=== PATIENT | female | born 1990 | race Caucasian/White ===

== ENCOUNTER 2018-07-10 08:27 | Outpatient (CLI) | payer OTHER ==
[~2018-07-10] VITALS: Ht 167.6 cm; Wt 78.0 kg
[2018-07-12] MEDS ORDERED: INDO25CA15 PO ×2 (07:03→09:23)
== END 2018-07-10 12:20 | disposition home or self-care (01) ==
LOC: PREOP 08:27
PROVIDERS: ATTEND Obstetrics & Gynecology
DX: Z01.818 Encounter for other preprocedural examination (principal)

== ENCOUNTER 2018-07-11 10:55 | Day surgery (SDC) | payer OTHER ==
[2018-07-11] VITALS (11 sets, daily range): BP systolic 88–101; BP diastolic 40–62
[~2018-07-11] VITALS: Ht 167.6 cm; Wt 78.0 kg
[2018-07-11] MEDS: LACTATED RINGERS 1,000 ML IV PRN ×2 (11:20→12:15)
[2018-07-11 11:46] LABS: BASOPHILS % (AUTO) 0 % (0-10); EOSINOPHILS % (AUTO) 0 % (0-10); HEMATOCRIT 36 % (35-52); HEMOGLOBIN 12.5 G/DL (11.5-16.0); LYMPHOCYTES # (AUTO) 1.6 X 10^3 (1.0-4.0); LYMPHOCYTES % (AUTO) 19 % (12-44); MEAN CORPUSCULAR HEMOGLOBIN 31 PG (25-34); MEAN CORPUSCULAR HGB CONC 35 G/DL (32-36); MEAN CORPUSCULAR VOLUME 89 FL (80-99); MEAN PLATELET VOLUME 11.2 FL (7.4-10.4); MONOCYTES # (AUTO) 0.4 X 10^3 (0.0-1.0); MONOCYTES % (AUTO) 5 % (0-12); NEUTROPHILS # (AUTO) 6.2 X 10^3 (1.8-7.8); NEUTROPHILS % (AUTO) 75 % (42-75); PLATELET COUNT 192 10^3/uL (130-400); RED CELL DISTRIBUTION WIDTH 13.1 % (10.0-14.5); WHITE BLOOD COUNT 8.3 10^3/uL (4.3-11.0)
[2018-07-11] MEDS ORDERED: fentaNYL INJECTION 100 MCG/2 ML AMP ONE (12:30)
--- NOTE | 2018-07-11 12:43 | History & Physical-OB ---
OB - Chief Complaint & HPI Date/Time Date of Admission: Date of Admission: 07/11/2018 Date seen by a Provider: July 11, 2018 Time Seen by a Provider: 12:15 Chief Complaint/History OB-Reason for Admission/Chief: Obstetrical Complication Hx : 1 Hx Para: 0 Gestational Age in Weeks: 16 Other reason for admission: Cerclage placement Admission Nurse Assessment Rev: Yes Allergies and Home Medications Allergies Coded Allergies: No Known Drug Allergies (Unverified , 07/10/18) Home Medications No Active Prescriptions or Reported Meds Patient Home Medication List Home Medication List Reviewed: Yes OB - History Hx of Present Care: Yes Ultrasounds: Abnormal US findings (2.16cm cervical length at 16 weeks) Obstetrical Complications: None Medical Complications: None Patient Past Medical History n/a Social History/Family History Recent Infectious Disease Expo: No Alcohol Use: Denies Use Recreational Drug Use: No OB - Admission Exam Physical Exam Vitals: Vital Signs 07/11/18 11:39 Temp 98.7 Pulse 67 Resp 18 B/P (MAP) 96/60 (72) Pulse Ox 100 O2 Delivery Room Air HEENT: NCAT Heart: Rhythm Normal Lungs: Clear Abdomen: Gravid Extremities: Normal Reflexes: Normal Heart Rate: 150's Labs Laboratory Tests Test 07/11/18 11:25 Range/Units White Blood Count 8.3 4.3-11.0 10^3/uL Red Blood Count 4.03 L 4.35-5.85 10^6/uL Hemoglobin 12.5 11.5-16.0 G/DL Hematocrit 36 35-52 % Mean Corpuscular Volume 89 80-99 FL Mean Corpuscular Hemoglobin 31 25-34 PG Mean Corpuscular Hemoglobin Concent 35 32-36 G/DL Red Cell Distribution Width 13.1 10.0-14.5 % Platelet Count 192 130-400 10^3/uL Mean Platelet Volume 11.2 H 7.4-10.4 FL Neutrophils (%) (Auto) 75 42-75 % Lymphocytes (%) (Auto) 19 12-44 % Monocytes (%) (Auto) 5 0-12 % Eosinophils (%) (Auto) 0 0-10 % Basophils (%) (Auto) 0 0-10 % Neutrophils # (Auto) 6.2 1.8-7.8 X 10^3 Lymphocytes # (Auto) 1.6 1.0-4.0 X 10^3 Monocytes # (Auto) 0.4 0.0-1.0 X 10^3 Eosinophils # (Auto) 0.0 0.0-0.3 10^3/uL Basophils # (Auto) 0.0 0.0-0.1 10^3/uL OB - Assessment/Plan/Diagnosis Assessment Assessment: other Admission Dx 27 yo @ 16 weeks Shortened cervix- Ayala Cerclage placement Admission Status: Observation Plan Plan: Other (Cerclage) Other Plan Will obs overnight with Indomethacin given, plan for DC in the AM ELIZABETH GIBBONS DO July 11, 2018 12:43
[2018-07-11] MEDS ORDERED: APAP 300 MG/CODEINE 30 MG (TYLENOL #3) TAB PO PRN (14:15)
[2018-07-11] MEDS ORDERED: D5 LR IV SOLUTION 1,000 ML IV SCH (14:15)
--- NOTE | 2018-07-11 14:20 | NUR ---
27 yr old female at 17 weeks from PACU with cerclage. No vaginal bleeding. Spinal anesthesia and move legs slightly. Denies pain or nausea. IV infusing. @ bedside.
--- NOTE | 2018-07-11 16:30 | NUR ---
Pt states has mild cramping. No urge to void. Instructed to use call light for first time up to void. FHT's 140 upon admission to unit. Tolerated regular diet well.
[2018-07-11] MEDS ORDERED: INDOMETHACIN 25 MG (INDOCIN) CAP PO NR (17:15)
--- NOTE | 2018-07-11 18:15 | NUR ---
Less cramping since Indocin.
[2018-07-11] MEDS ORDERED: INDOMETHACIN 25 MG (INDOCIN) CAP PO SCH (21:00)
[2018-07-12 01:57] VITALS: BP 95/58
[2018-07-12] MEDS: INDOMETHACIN 25 MG (INDOCIN) CAP PO SCH ×2 (01:57→05:47)
[2018-07-12] MEDS ORDERED: INDOMETHACIN 25 MG (INDOCIN) CAP PO ONE (05:34)
[2018-07-12 05:47] VITALS: BP 91/57
[2018-07-12] MEDS ORDERED: INDO25CA15 PO ×2 (07:03→09:23)
--- NOTE | 2018-07-12 08:25 | NUR ---
Dr. Coronado here to see patient. New orders received.
[2018-07-12 09:34] VITALS: BP 99/59
--- NOTE | 2018-07-12 09:34 | NUR ---
AM shift assessment completed and vital signs obtained, see interventions. Plan of care reviewed with patient. Patient verbalizes understanding and questions answered. heart tones obtained with doppler: 145 bpm.
--- NOTE | 2018-07-12 09:38 | Anesthesia-Regional Post-Op ---
Regional Patient Condition Mental Status: Alert, Oriented x3 Circulation: Same as Pre-Op Headache: Absent Sensation: Full Recovery Motor Block: Absent Post Op Complications Complications None Follow Up Care/Instructions Patient Instructions None needed. Anesthesia/Patient Condition Patient is doing well, no complaints, stable vital signs, no apparent adverse anesthesia problems. No complications reported per nursing. PAULINE OCONNELL CRNA July 12, 2018 09:38
--- NOTE | 2018-07-12 09:42 | NUR ---
Discharge instructions and medications reviewed with patient both written and verbally. Patient verbalizes understanding and questions answered. Written prescription given to patient.
--- NOTE | 2018-07-12 09:53 | NUR ---
Patient discharged at this time via wheelchair and accompanied down to awaiting private vehicle by this RN. No signs or symptoms of distress noted.
--- NOTE | 2018-07-12 18:50 | OPERATIVE REPORT ---
DATE OF SERVICE: PREOPERATIVE DIAGNOSES: 1. A 27-year-old female with shortening cervix. 2. A 16 weeks gestation. POSTOPERATIVE DIAGNOSES: 1. A 27-year-old female with shortening cervix. 2. A 16 weeks gestation. PROCEDURE: Jose cerclage. SURGEON: ELIZABETH GIBBONS DO ESTIMATED BLOOD LOSS: Minimal. URINE OUTPUT: Not recorded. FLUIDS: 800 mL lactated Ringer's solution. FINDINGS: Significantly shortened cervix on evaluation and heart tones in the 150s. OPERATIVE REPORT IN DETAIL: The patient was taken to the operating room where spinal anesthesia was found to be adequate, placed in the dorsal lithotomy position, prepped and draped in normal sterile fashion. Once this was done, a timeout was performed. A weighted speculum inserted to the patient's vagina. A right angle retractor used to visualize the cervix. Cervix was grasped at 12 o'clock and 6 o'clock using a long Allis clamp. Two Jose cerclage sutures are placed in usual fashion using #1 Ethibond doubly knotted at the ends. Once this was done, there was no active bleeding noted. The vagina was irrigated copiously to prevent cramping and postoperative bleeding after which all instruments were removed from the patient's vagina. The patient tolerated the procedure well and sent to recovery room in stable condition. Job ID: [id number] DocumentID: [id number] Dictated Date: 07/12/2018 09:18:13 Supervisor [employer] Date: 07/12/2018 18:50:17 Dictated By: ELIZABETH GIBBONS DO
== END 2018-07-12 09:53 | disposition home or self-care (01) ==
LOC: SDC 10:55 → LDRP 14:20 → SDC 07-12 09:53
PROVIDERS: ATTEND Obstetrics & Gynecology
DX: O26.872 Cervical shortening, second trimester (principal); Z3A.16 16 weeks gestation of pregnancy
CPT/HCPCS: 36415; 85025; 86850; 86900; 86901; 87081; 94664

== ENCOUNTER → 2018-08-02 | Outpatient (CLI) | payer OTHER ==
[~2018-08-02] MED LIST: INDO25CA15 PO
--- NOTE | 2018-08-02 12:00 | Diagnostic Imaging Report ---
INDICATION: survey. TECHNIQUE: Multiple real-time grayscale images were obtained over the gravid uterus. COMPARISON: None. FINDINGS: There are no prior studies available for comparison. There is a single live fetus in breech presentation. heart motion was noted and a rate of 163 BPM was recorded. There were no abnormalities identified but the four-chamber heart view was less than optimal. I would recommend that a short-term (4-6 week) followup exam be performed for further study. The growth parameters are fairly uniform. The placenta is posterior and fundal. The amniotic fluid volume is within normal limits. The cervix was measured and is estimated 3.1 cm in length. IMPRESSION: 1. There is single live fetus approximately 20 weeks 4 days gestation + / -1.5 weeks. The EDC is 12/16/2018. 2. There were no abnormalities identified but the four-chamber heart view is less than optimal. Recommendations as above. 3. The growth parameters are fairly uniform. Biometrical measurements are as follows: Biparietal 4.74 cm, age 20 weeks 3 days. Head circumference 18.32 cm, age 20 weeks 5 days. Abdominal circumference 15.58 cm, age 20 weeks 6 days. Femur length 3.27 cm, age 20 weeks 2 days. Sonographic estimate age: 20 weeks 4 days. Sonographic estimated date of delivery: 12/16/2018. Estimated Weight: 359 gm (+/- 52 gm). LMP percentile: 67%. heart rate: 163 beats per minute. number: 1 of 1. Dictated by: Dictated on workstation # [id number]
== END ==
LOC: RAD 10:11
PROVIDERS: ATTEND Obstetrics & Gynecology
DX: Z36.89 Encounter for other specified antenatal screening (principal); Z3A.20 20 weeks gestation of pregnancy
CPT/HCPCS: 76805

== ENCOUNTER 2018-11-20 15:00 | Inpatient (IN) | payer OTHER ==
[2018-11-20] VITALS (37 sets, daily range): BP systolic 105–143; BP diastolic 57–79
[~2018-11-20] VITALS: Ht 167.7 cm; Wt 88.5 kg
--- NOTE | 2018-11-20 14:55 | NUR ---
PHU HINOJOSA presented to unit via ambulation from 's office, accompanied by & pt's , for contractions. Pt. weighed, gowned, voided, and to bed. EFHM and TOCO applied, VS taken. Pt. oriented to bed controls, call light, TV, heat, and A/C controls.
--- NOTE | 2018-11-20 16:17 | NUR ---
here. SVE per admission orders received
[2018-11-20] MEDS ORDERED: AMPICILLIN FOR IV USE 2,000 MG in WATER (STERILE) FOR INJECTION 14.8 ML IV SCH (16:21)
[2018-11-20] MEDS ORDERED: D5 LR IV SOLUTION 1,000 ML IV ONE (16:24)
[2018-11-20] MEDS: D5 LR IV SOLUTION 1,000 ML IV SCH (16:42)
--- NOTE | 2018-11-20 16:42 | NUR ---
#20g IV to Rt.hand x2 attempts by this RN. site patent. secured with That{img}. D5LR @ 125cc/hr infusing via IV pump. admission labs collected prior to IVF's infusing.
--- NOTE | 2018-11-20 17:01 | NUR ---
LR bolus started prior to epidural placement.
[2018-11-20 17:03] LABS: BASOPHILS % (AUTO) 0 % (0-10); EOSINOPHILS % (AUTO) 0 % (0-10); HEMATOCRIT 38 % (35-52); HEMOGLOBIN 12.8 G/DL (11.5-16.0); LYMPHOCYTES # (AUTO) 1.4 X 10^3 (1.0-4.0); LYMPHOCYTES % (AUTO) 12 % (12-44); MEAN CORPUSCULAR HEMOGLOBIN 30 PG (25-34); MEAN CORPUSCULAR HGB CONC 34 G/DL (32-36); MEAN CORPUSCULAR VOLUME 88 FL (80-99); MEAN PLATELET VOLUME 12.5 FL (7.4-10.4); MONOCYTES # (AUTO) 0.7 X 10^3 (0.0-1.0); MONOCYTES % (AUTO) 6 % (0-12); NEUTROPHILS % (AUTO) 81 % (42-75); PLATELET COUNT 194 10^3/uL (130-400); RED CELL DISTRIBUTION WIDTH 13.7 % (10.0-14.5); WHITE BLOOD COUNT 11.2 10^3/uL (4.3-11.0)
--- NOTE | 2018-11-20 17:21 | NUR ---
Ivonne Hayes called to check on pt's status. update given. no new orders received.
[2018-11-20] MEDS ORDERED: FLU QUADRIvalent (5+ YOA) 2019-2020 (AFLURIA) 0.5 ML IM ONE (18:30)
[2018-11-20 19:18] LABS: BILIRUBIN,URINE NEGATIVE (NEGATIVE); CLARITY,URINE CLEAR; COLOR,URINE YELLOW; GLUCOSE, URINE (UA) NEGATIVE (NEGATIVE); KETONES,URINE 4+ (NEGATIVE); LEUKOCYTE ESTERASE ,URINE 2+ (NEGATIVE); NITRITE,URINE NEGATIVE (NEGATIVE); PH,URINE 6 (5-9); PROTEIN,URINE 1+ (NEGATIVE); UROBILINOGEN,URINE NORMAL (NORMAL)
--- NOTE | 2018-11-20 19:18 | NUR ---
report given to CINTIA Parikh.
[2018-11-20 19:29] LABS: BACTERIA,URINE FEW /HPF; RBC,URINE 50-100 /HPF
[2018-11-20] MEDS ORDERED: SUFENTA 0.6MCG/ML BUPIVA 0.125 100 ML ONE (19:39)
--- NOTE | 2018-11-20 20:22 | NUR ---
Renny Cox, SAGAR and KENTRELL here for epidural placement. Procedure explained, consent reviewed and signed by anesthesia. Questions answered to patient's satisfaction. Time out taken to verify correct patient/procedure. Patient up to side of bed, assisted into sitting position. Betadine prep done x3 and sterile drape applied. Local done, see anesthesia record. Test dose given, see anesthesia record for drug and dosage. Epidural catheter secured in place. Epidural placement complete. Assisted back into bed, monitors adjusted. Epidural dosed, see anesthesia record. Epidural of Sufenta/Bupvicaine @ 12cc/hr stated per pump. Patient tolerated procedure well.
[2018-11-20] MEDS ORDERED: LACTATED RINGERS 1,000 ML IV SCH (20:56)
[2018-11-20] MEDS: EPIDURAL (SUFENTA 0.6MCG/ML BUPIVA 0.125%) 100 ML BAG EPI SCH (20:57)
[2018-11-20] MEDS ORDERED: ONDANSETRON 4 MG/2 ML (SDV) Z0FRAN IV PRN (21:00)
[2018-11-20] MEDS ORDERED: METOCLOPRAMIDE INJ 10 MG/2 ML (REGLAN) IV PRN (21:00)
[2018-11-20] MEDS ORDERED: diphenhydrAMINE 50 MG/ML INJ (BENADRYL) IV PRN (21:00)
[2018-11-20] MEDS ORDERED: NALOXONE 0.4 MG/ML 1 ML (NARCAN) VIAL IV PRN ×2 (21:00)
[2018-11-20] MEDS: AMPICILLIN FOR IV USE 1,000 MG in WATER (STERILE) FOR INJECTION 7.4 ML IV SCH (21:38)
--- NOTE | 2018-11-20 21:41 | History & Physical-OB ---
OB - Chief Complaint & HPI Date/Time Date of Admission: Date of Admission: Nov 20, 2018 at 16:20 Date seen by a Provider: Nov 20, 2018 Time Seen by a Provider: 15:00 Chief Complaint/History OB-Reason for Admission/Chief: Labor Hx : 1 Hx Para: 0 Expected Date of Delivery: Dec 19, 2018 Gestational Age in Weeks: 35 Gestational Age in Days: 6 Other reason for admission: Patient admitted from the office after routine visit resulted in the patient requesting vaginal exam due to pelvic/vaginal pains. On exam cerclage was palpated underpressure with some dilatation despite it being in place. There was some tearing of the cervix noted on exam. SSE performed and both cerclage sutures were removed. Afterwhich SVE revealed 4 cm/90/-1 station with bulging membranes. Patient sent to L and D for evaluation and monitoring,. Admission Nurse Assessment Rev: Yes Allergies and Home Medications Allergies Coded Allergies: No Known Drug Allergies (Unverified , 07/10/18) Home Medications Indomethacin 25 Mg Capsule, 25 MG PO Q6hr Prescribed by: NAT RICHARDS on 07/12/18 0923 Patient Home Medication List Home Medication List Reviewed: Yes OB - History Hx of Present Care: Yes Ultrasounds: Normal mid trimester US Obstetrical Complications: Other (cervical insufficiency) Medical Complications: None Obstetrical History Hx : 1 Hx Para: 0 Patient Past Medical History LEEP Social History/Family History Recent Infectious Disease Expo: No Alcohol Use: Denies Use Recreational Drug Use: No OB - Admission Exam Physical Exam Vitals: Vital Signs 11/20/18 11/20/18 15:00 19:00 Temp 36.4 Pulse 71 Resp 18 B/P (MAP) 118/74 (89) O2 Delivery Room Air HEENT: NCAT Heart: Rhythm Normal Lungs: Clear Abdomen: Gravid Extremities: Normal Reflexes: Normal Cervical Dilatation: 4cm Effacement: 100% Station: -1 Membranes: Intact Heart Rate: 130's Accelerations: Accelerations Present Decelerations: No Decelerations Short Term Variability: Present Manager Transportation Planning Variability: Average (6-25) Contractions on Admission: < 5 Minutes Apart Labs Laboratory Tests Test 11/20/18 16:42 11/20/18 18:55 Range/Units White Blood Count 11.2 H 4.3-11.0 10^3/uL Red Blood Count 4.31 L 4.35-5.85 10^6/uL Hemoglobin 12.8 11.5-16.0 G/DL Hematocrit 38 35-52 % Mean Corpuscular Volume 88 80-99 FL Mean Corpuscular Hemoglobin 30 25-34 PG Mean Corpuscular Hemoglobin Concent 34 32-36 G/DL Red Cell Distribution Width 13.7 10.0-14.5 % Platelet Count 194 130-400 10^3/uL Mean Platelet Volume 12.5 H 7.4-10.4 FL Neutrophils (%) (Auto) 81 H 42-75 % Lymphocytes (%) (Auto) 12 12-44 % Monocytes (%) (Auto) 6 0-12 % Eosinophils (%) (Auto) 0 0-10 % Basophils (%) (Auto) 0 0-10 % Neutrophils # (Auto) 9.0 H 1.8-7.8 X 10^3 Lymphocytes # (Auto) 1.4 1.0-4.0 X 10^3 Monocytes # (Auto) 0.7 0.0-1.0 X 10^3 Eosinophils # (Auto) 0.0 0.0-0.3 10^3/uL Basophils # (Auto) 0.0 0.0-0.1 10^3/uL Urine Color YELLOW Urine Clarity CLEAR Urine pH 6 5-9 Urine Specific [place] 1.020 1.016-1.022 Urine Protein 1+ H NEGATIVE Urine Glucose (UA) NEGATIVE NEGATIVE Urine Ketones 4+ H NEGATIVE Urine Nitrite NEGATIVE NEGATIVE Urine Bilirubin NEGATIVE NEGATIVE Urine Urobilinogen NORMAL NORMAL MG/DL Urine Leukocyte Esterase 2+ H NEGATIVE Urine RBC (Auto) 5+ H NEGATIVE Urine RBC 50-100 H /HPF Urine WBC 10-25 H /HPF Urine Squamous Epithelial Cells 5-10 /HPF Urine Crystals NONE /LPF Urine Bacteria FEW H /HPF Urine Casts NONE /LPF Urine Mucus NEGATIVE /LPF Urine Culture Indicated CULTURE PENDING OB - Assessment/Plan/Diagnosis Assessment Assessment: labor Admission Dx 28 yo @ 35.6 weeks labor GBS unknown S/P cerclage removal for cervical insufficiency Admission Status: Inpatient Order (span 2 midnights) Reason for Inpatient Admission: labor Plan Plan: Expectant Management Other Plan Decision made to admit patient due to cervical change to 5 cm over an hour, with regular contractions every 2-3 min. May have epidural at request, and will await GBS prophylaxis therapy and monitor overnight before deciding to augment further. ELIZABETH GIBBONS DO Nov 20, 2018 21:40
[2018-11-20] MEDS: CATHETER FLUSH 10 ML SYR IV SCH (22:02)
[2018-11-21] VITALS (72 sets, daily range): BP systolic 87–159; BP diastolic 50–88
[2018-11-21] MEDS: D5 LR IV SOLUTION 1,000 ML IV SCH ×2 (01:21→09:36)
[2018-11-21] MEDS: AMPICILLIN FOR IV USE 1,000 MG in WATER (STERILE) FOR INJECTION 7.4 ML IV SCH ×4 (01:22→14:30)
[2018-11-21] MEDS: EPIDURAL (SUFENTA 0.6MCG/ML BUPIVA 0.125%) 100 ML BAG EPI SCH ×2 (04:26→12:06)
--- NOTE | 2018-11-21 05:50 | NUR ---
Dr. Coronado called unit for update. Orders received to start pitocin per his protocol at 0630.
[2018-11-21] MEDS ORDERED: OXYTOCIN/NORMAL SALINE 500 ML IV SCH (06:05)
[2018-11-21] MEDS: CATHETER FLUSH 10 ML SYR IV SCH (06:11)
[2018-11-21] MEDS ORDERED: OXYTOCIN/NORMAL SALINE 500 ML IV ONE (06:29)
--- NOTE | 2018-11-21 07:05 | NUR ---
pt report received by rai alan. this rn and student introduces self to pt and so. physical assessment complete. discuss plan of pt care. call light within reach.
--- NOTE | 2018-11-21 07:21 | NUR ---
dr vaca at bedside. sve and arom by discuss plan of care. questions answered. call light within reach.
--- NOTE | 2018-11-21 11:30 | NUR ---
report received from CINTIA Choi. care assumed of pt.
[2018-11-21] MEDS ORDERED: LIDOCAINE/EPI 2% 1:200,00 (XYLOCAINE) 10 ML VIAL ONE (14:47)
--- NOTE | 2018-11-21 15:15 | NUR ---
report given to CINTIA Dutta.
--- NOTE | 2018-11-21 15:40 | NUR ---
Spontaneous vaginal delivery of a male at 36 weeks. EBL 300mls. Midline episiotomy without extension. 171 Mom in wheelchair and taken to nursery - infant being transferred to [place], [place]. Tolerated standing without difficulty. 180 NICU team here - mom transferred to pp room. Breast pump set given with instructions. 1914 Mom up to BR with assistance from this nurse. Explained Tucks, manuel bottle, Dermoplast spray. Voided well. Bleeding WNL's.
[2018-11-21] MEDS: OXYTOCIN/NORMAL SALINE 500 ML IV SCH ×2 (15:43→16:20)
--- NOTE | 2018-11-21 17:10 | OB Labor & Delivery Record ---
L&D History Date of Service Date of Service: Nov 21, 2018 History Expected Date of Delivery: Dec 19, 2018 Gestational Age in Weeks: 36 Hx : 1 Hx Para: 0 Complications Events: Routine care Operative Indications (Cesarea: N/A-Vaginal Delivery Intrapartal Events: None L&D Stage1 Stage One Onset of Labor - Date: Nov 21, 2018 Monitors and Tracing Monitor Mode: External Heart Rate: 120 Monitor Decelerations: None Station: +2 Equity Holder Variability: Average (6-10) Short Term Variability: Present Presentation: Vertex Vital Signs VS - Last 72 Hours, by Label 11/20/18 11/20/18 11/20/18 11/20/18 15:00 17:00 17:30 18:00 Temp 36.4 Pulse 63 59 56 67 Resp 18 18 18 18 B/P (MAP) 120/69 (86) 118/76 (90) 123/74 (90) 114/76 (89) O2 Delivery Room Air Room Air Room Air Room Air 11/20/18 11/20/18 11/20/18 11/20/18 18:30 19:00 19:25 19:55 Temp 36.8 Pulse 60 71 61 67 Resp 18 18 18 18 B/P (MAP) 129/78 (95) 118/74 (89) 119/72 (88) 115/79 (91) O2 Delivery Room Air Room Air Room Air Room Air 11/20/18 11/20/18 11/20/18 11/20/18 20:25 20:32 20:37 20:42 Pulse 72 75 76 67 Resp 18 18 18 18 B/P (MAP) 131/74 (93) 143/79 (100) 127/75 (92) 124/74 (91) Pulse Ox 97 100 100 98 O2 Delivery Room Air Room Air Room Air Room Air 11/20/18 11/20/18 11/20/18 11/20/18 20:47 20:52 20:55 20:58 Pulse 76 68 63 71 Resp 18 18 16 16 B/P (MAP) 114/74 (87) 113/60 (77) 116/67 (83) 118/72 (87) Pulse Ox 99 99 99 99 O2 Delivery Room Air Room Air Room Air Room Air 11/20/18 11/20/18 11/20/18 11/20/18 21:01 21:04 21:07 21:10 Pulse 67 66 78 70 Resp 16 16 16 16 B/P (MAP) 113/72 (86) 110/71 (84) 114/66 (82) 117/73 (88) Pulse Ox 99 98 99 99 O2 Delivery Room Air Room Air Room Air Room Air 11/20/18 11/20/18 11/20/18 11/20/18 21:13 21:18 21:23 21:27 Pulse 68 75 77 63 Resp 16 16 16 16 B/P (MAP) 109/65 (80) 116/67 (83) 105/57 (73) 108/62 (77) Pulse Ox 99 99 98 98 O2 Delivery Room Air Room Air Room Air Room Air 11/20/18 11/20/18 11/20/18 11/20/18 21:32 21:40 21:45 21:50 Pulse 71 74 74 65 Resp 16 16 16 16 B/P (MAP) 111/67 (82) 110/60 (77) 112/65 (81) 105/63 (77) Pulse Ox 98 98 99 97 O2 Delivery Room Air Room Air Room Air Room Air 11/20/18 11/20/18 11/20/18 11/20/18 21:55 22:10 22:25 22:40 Temp 36.5 Pulse 97 69 64 59 Resp 16 16 16 16 B/P (MAP) 125/58 (80) 109/58 (75) 108/70 (83) 106/71 (83) Pulse Ox 97 98 98 98 O2 Delivery Room Air Room Air Room Air Room Air 11/20/18 11/20/18 11/20/18 11/20/18 22:55 23:15 23:25 23:40 Pulse 68 70 63 69 Resp 16 16 16 16 B/P (MAP) 109/70 (83) 106/70 (82) 107/70 (82) 108/69 (82) Pulse Ox 98 98 97 97 O2 Delivery Room Air Room Air Room Air Room Air 11/20/18 11/21/18 11/21/18 11/21/18 23:55 00:10 00:25 00:40 Temp 36.5 Pulse 62 66 71 69 Resp 16 16 16 16 B/P (MAP) 112/71 (85) 106/67 (80) 117/72 (87) 110/67 (81) Pulse Ox 97 97 97 98 O2 Delivery Room Air Room Air Room Air Room Air 11/21/18 11/21/18 11/21/18 11/21/18 00:55 01:15 01:25 01:40 Pulse 56 61 56 58 Resp 16 16 16 16 B/P (MAP) 111/70 (84) 104/67 (79) 107/67 (80) 101/62 (75) O2 Delivery Room Air Room Air Room Air Room Air 11/21/18 11/21/18 11/21/18 11/21/18 01:55 02:10 02:25 02:40 Pulse 57 60 57 63 Resp 16 16 16 16 B/P (MAP) 105/65 (78) 101/58 (72) 105/61 (76) 101/59 (73) O2 Delivery Room Air Room Air Room Air Room Air 11/21/18 11/21/18 11/21/18 11/21/18 02:55 03:10 03:25 03:40 Pulse 59 64 65 67 Resp 16 16 16 16 B/P (MAP) 103/55 (71) 110/67 (81) 109/69 (82) 105/69 (81) O2 Delivery Room Air Room Air Room Air Room Air 11/21/18 11/21/18 11/21/18 11/21/18 03:55 04:10 04:25 04:40 Pulse 62 71 62 64 Resp 16 16 16 16 B/P (MAP) 99/67 (78) 100/65 (77) 105/64 (78) 105/63 (77) O2 Delivery Room Air Room Air Room Air Room Air 11/21/18 11/21/18 11/21/18 11/21/18 04:55 05:10 05:30 05:45 Temp 37.1 Pulse 66 62 64 67 Resp 16 16 16 16 B/P (MAP) 100/62 (75) 107/68 (81) 108/66 (80) 105/61 (76) O2 Delivery Room Air Room Air Room Air Room Air 11/21/18 11/21/18 11/21/18 11/21/18 05:55 06:10 06:25 06:40 Pulse 66 64 65 62 Resp 16 16 16 16 B/P (MAP) 103/59 (74) 102/59 (73) 113/61 (78) 106/63 (77) O2 Delivery Room Air Room Air Room Air Room Air 11/21/18 11/21/18 11/21/18 11/21/18 06:55 07:15 07:30 07:45 Temp 36.7 Pulse 63 62 63 66 Resp 16 16 B/P (MAP) 109/65 (80) 107/59 (75) 103/61 (75) 110/65 (80) O2 Delivery Room Air Room Air Room Air Room Air 11/21/18 11/21/18 11/21/18 11/21/18 08:00 08:15 08:30 08:45 Pulse 77 62 66 56 Resp 16 B/P (MAP) 113/62 (79) 105/60 (75) 104/64 (77) 101/57 (72) O2 Delivery Room Air Room Air Room Air Room Air 11/21/18 11/21/18 11/21/18 11/21/18 09:00 09:15 09:30 09:45 Temp 36.6 Pulse 53 53 56 70 Resp 16 B/P (MAP) 98/59 (72) 98/56 (70) 99/55 (70) 87/54 (65) O2 Delivery Room Air Room Air Room Air Room Air 11/21/18 11/21/18 11/21/18 11/21/18 10:00 10:15 10:30 10:45 Temp 36.7 Pulse 63 63 65 59 B/P (MAP) 89/50 (63) 88/52 (64) 88/54 (65) 100/64 (76) O2 Delivery Room Air Room Air Room Air Room Air 11/21/18 11/21/18 11/21/18 11/21/18 11:00 11:15 11:30 11:45 Pulse 57 60 64 70 Resp 18 B/P (MAP) 106/66 (79) 107/64 (78) 106/67 (80) 87/52 (64) O2 Delivery Room Air Room Air Room Air Room Air 11/21/18 11/21/18 11/21/18 11/21/18 12:00 12:15 12:30 12:45 Temp 36.5 Pulse 64 64 61 63 Resp 18 18 18 18 B/P (MAP) 112/67 (82) 118/71 (87) 111/67 (82) 114/67 (83) O2 Delivery Room Air Room Air Room Air Room Air 11/21/18 11/21/18 11/21/18 11/21/18 13:00 13:15 13:30 13:45 Pulse 64 72 66 68 Resp 18 18 18 18 B/P (MAP) 115/65 (82) 117/67 (84) 113/67 (82) 125/62 (83) O2 Delivery Room Air Room Air Room Air Room Air 11/21/18 11/21/18 11/21/18 11/21/18 14:00 14:15 14:30 14:45 Pulse 67 67 65 75 Resp 18 18 18 18 B/P (MAP) 112/58 (76) 123/67 (85) 114/68 (83) 130/85 (100) O2 Delivery Room Air Room Air Room Air Room Air 11/21/18 11/21/18 15:00 15:15 Pulse 60 144 Resp 18 18 B/P (MAP) 133/65 (87) 159/67 (97) O2 Delivery Room Air Room Air Rupture of Membranes Spontaneous Ruture of Membrane: No Amniotic Membrane Rupture Time: 720 Amniotic Membrane Fluid Desc.: Clear Vaginal Bleeding Description: Normal Show Induction/Anesthesia Epidural Cath Placement - Time: 2039 Progress/Notes Patient monitored with regular contractions after admission overnight she received an epidural, progression to 5-6 cm /100% effacement noted the following morning. AROM and Pitocin started after. Progressed to complete and +2 station L&D Stage2 Stage Two Stage II Date: Nov 21, 2018 Monitors and Tracing Monitor Mode: External Heart Rate: 120 Monitor Decelerations: None Mcfp Variability: Average (6-10) Short Term Variability: Present Position: Right Occiput Anterior Presentation: Vertex Cord Descript/Complications Cord Vessel Description: 3 Vessels Delivery Type Delivery Method: Spontaneous Vaginal Anterior Shoulder: Right Episiotomy/Perineal Laceration Laceraction(s)/Extensions: Yes Episiotomy Description: Midline Degree (describe repair) midline episiotomy repaired using 3-0 rapide and 2-0 vicryl suture in usual fashion Condition of Infant Condition of Condition of Infant: Living Exam: No Observed Abnormalities Live male infant weight 6lbs 15 oz, and pending. Patient taken with Peds to nursing due to respiratory concerns Resuscitation Resuscitation: Oxygen Blowby L&D Stage3 Stage Three Stage III Date: Nov 21, 2018 Pictocin Pitocin Administration mu/min: 14 Pitocin ml/hr: 14 Pitocin Administration Comment: Pitocin wide open 30 mu at delivery of placenta Placenta Delivery Placenta Delivery: Spontaneous Delivery Summary Summary Estimated blood loss (mL): 300 Attending at delivery: Elizabeth Gibbons DO Condition of Delivery Examined: Cervix Examined, Uterus Explored Post Hemorrhage: No Condition of Mother stable Condition of (s) to nursery ELIZABETH GIBBONS DO Nov 21, 2018 5:09 pm
[2018-11-21] MEDS ORDERED: DIBU30OI TOP (17:12)
[2018-11-21] MEDS ORDERED: Benzocaine/Menthol TP (17:12)
[2018-11-21] MEDS ORDERED: DOCU100C37 PO (17:12)
[2018-11-21] MEDS ORDERED: IBUP-844 PO (17:12)
[2018-11-21] MEDS ORDERED: FERR325T18 PO (17:12)
[2018-11-21] MEDS ORDERED: ACHD5005 PO (17:12)
--- NOTE | 2018-11-21 17:13 | Discharge Inst-Women's Service ---
Discharge Inst-Women's Serv Depart Medication/Instructions New, Converted or Re-Newed RX: RX on Chart Final Diagnosis PPD 1 NVD Problems Reviewed?: Yes Consults/Follow Up Additional Follow Up: Yes Orders/Referrals Dr. Gibbons in 6 weeks Activity Activity: Activity as Tolerated Driving Instructions: No Driving for 1 Week NO SMOKING: NO SMOKING Nothing Inside Vagina: No Douching, No [place], No Tampons Diet Discharge Diet: No Restrictions Symptoms to Report to : Bleeding Excessive, Pain Increased, Fever Over 101 Degrees F, Vaginal Bleeding Increase, Questions/Concerns For Any Problems or Questions: Contact Your Physician ELIZABETH GIBBONS DO Nov 21, 2018 5:13 pm
[2018-11-21] MEDS ORDERED: DIBUCAINE (NUPERCAINAL) 1% OINT 30 GM TOP PRN (17:15)
[2018-11-21] MEDS ORDERED: TETANUS,DIPTH,PERTUSS P/F (BOOSTRIX) 0.5 ML VIAL IM ONE (17:15)
[2018-11-21] MEDS ORDERED: BENZOCAINE/MENTHOL (DERMOPLAST) 56 ML CAN TP PRN (17:15)
[2018-11-21] MEDS ORDERED: HYDROcodone/APAP 5 MG/325 MG (LORTAB) TAB PO PRN (17:15)
[2018-11-21] MEDS ORDERED: MEASLES,MUMPS,RUBELLA 1 EA INJ SQ ONE (17:15)
[2018-11-21] MEDS ORDERED: WITCH HAZEL(TUCKS) 40 EA JAR TOP PRN (17:15)
[2018-11-21] MEDS: IBUPROFEN 600 MG (MOTRIN) TAB PO SCH (18:50)
[2018-11-21] MEDS ORDERED: DOCUSATE SODIUM 100 MG (COLACE) CAP PO SCH (21:00)
[2018-11-21] MEDS ORDERED: CATHETER FLUSH 10 ML SYR IV SCH (22:00)
[2018-11-22] MEDS: IBUPROFEN 600 MG (MOTRIN) TAB PO SCH ×2 (00:08→05:11)
[2018-11-22 00:15] VITALS: BP 98/62
[2018-11-22 05:11] VITALS: BP 101/63
[2018-11-22 06:33] LABS: BASOPHILS % (AUTO) 0 % (0-10); EOSINOPHILS # (AUTO) 0.1 10^3/uL (0.0-0.3); EOSINOPHILS % (AUTO) 1 % (0-10); HEMATOCRIT 37 % (35-52); HEMOGLOBIN 11.9 G/DL (11.5-16.0); LYMPHOCYTES # (AUTO) 2.1 X 10^3 (1.0-4.0); LYMPHOCYTES % (AUTO) 18 % (12-44); MEAN CORPUSCULAR HEMOGLOBIN 29 PG (25-34); MEAN CORPUSCULAR HGB CONC 32 G/DL (32-36); MEAN CORPUSCULAR VOLUME 89 FL (80-99); MEAN PLATELET VOLUME 12.6 FL (7.4-10.4); MONOCYTES # (AUTO) 0.8 X 10^3 (0.0-1.0); MONOCYTES % (AUTO) 7 % (0-12); NEUTROPHILS # (AUTO) 8.7 X 10^3 (1.8-7.8); NEUTROPHILS % (AUTO) 74 % (42-75); PLATELET COUNT 204 10^3/uL (130-400); RED CELL DISTRIBUTION WIDTH 14.4 % (10.0-14.5); WHITE BLOOD COUNT 11.8 10^3/uL (4.3-11.0)
[2018-11-22] MEDS ORDERED: FERROUS SULF 325 MG (IRON) TAB PO SCH (08:00)
[2018-11-22] MEDS ORDERED: FLU QUADRIvalent (5+ YOA) 2019-2020 (AFLURIA) 0.5 ML IM ONE (08:26)
[2018-11-22 08:30] VITALS: BP 100/67
--- NOTE | 2018-11-22 08:30 | NUR ---
A.M. ASSESSMENT COMPLETED. VSS. ANXIOUS TO GO SEE . MOTHER AT BEDSIDE.
--- NOTE | 2018-11-22 09:00 | NUR ---
DR. GIBBONS IN TO SEE PT.
--- NOTE | 2018-11-22 10:00 | NUR ---
DISCHARGE INSTRUCTIONS REVIEWED WITH COPY TO PT. RXS GIVEN. STATES UNDERSTANDING OF ALL INSTRUCTIONS AND NEED TO F/U SCHEDULED AND NEEDED.
[2018-11-22 10:10] VITALS: BP 100/67
--- NOTE | 2018-11-22 10:10 | NUR ---
DISMISSED AMB FROM [facility] IN STABLE CONDITION TO FAMILY CAR ACC BY MOTHER AND JONATHAN CHAMBERLAIN.
--- NOTE | 2018-11-22 10:48 | Postpartum Progress Note ---
Note Note Day # 1 Subjective: Patient is without complaints. Ambulating, voiding. Tolerating a regular diet without nausea or vomiting. Normal lochia. Pain is well controlled with oral pain medications. Objective: Physical Exam: General - Alert and oriented, no apparent distress Abdomen - Soft, appropriately tender to palpation, non-distended, fundus firm at umbilicus Extremities - no edema, negative Patricia's bilaterally Assessment: PPD 1 NVD Plan: Routine care. Encourage breast feeding. Encourage ambulation. Ferrous sulfate supplementation. Plan for discharge today Vitals - Labs Vital Signs - I&O Vital Signs Date Time Temp Pulse Resp B/P (MAP) Pulse Ox O2 Delivery O2 Flow Rate FiO2 11/22/18 05:11 36.7 57 18 101/63 (76) 98 Room Air 11/22/18 00:15 37.1 62 18 98/62 (74) 97 Room Air 11/21/18 19:50 36.7 75 18 101/64 (76) 100 Room Air 11/21/18 18:00 84 118/64 (82) 11/21/18 17:45 82 112/60 (77) 11/21/18 17:30 75 116/67 (83) 11/21/18 17:15 67 112/67 (82) 11/21/18 17:00 69 109/66 (80) 11/21/18 16:45 36.9 75 122/88 (99) 11/21/18 16:30 71 16 109/61 (77) Room Air 11/21/18 16:15 95 16 124/75 (91) Room Air 11/21/18 16:00 73 128/78 (95) Room Air 11/21/18 15:30 81 139/87 (104) Room Air 11/21/18 15:15 144 18 159/67 (97) Room Air 11/21/18 15:00 60 18 133/65 (87) Room Air 11/21/18 14:45 75 18 130/85 (100) Room Air 11/21/18 14:30 65 18 114/68 (83) Room Air 11/21/18 14:15 67 18 123/67 (85) Room Air 11/21/18 14:00 67 18 112/58 (76) Room Air 11/21/18 13:45 68 18 125/62 (83) Room Air 11/21/18 13:30 66 18 113/67 (82) Room Air 11/21/18 13:15 72 18 117/67 (84) Room Air 11/21/18 13:00 64 18 115/65 (82) Room Air 11/21/18 12:45 63 18 114/67 (83) Room Air 11/21/18 12:30 61 18 111/67 (82) Room Air 11/21/18 12:15 64 18 118/71 (87) Room Air 11/21/18 12:00 36.5 64 18 112/67 (82) Room Air 11/21/18 11:45 70 18 87/52 (64) Room Air 11/21/18 11:30 64 106/67 (80) Room Air 11/21/18 11:15 60 107/64 (78) Room Air 11/21/18 11:00 57 106/66 (79) Room Air I & O 11/22/18 07:00 Intake Total 500 ml Balance 500 ml Labs Laboratory Tests 11/22/18 05:35: White Blood Count 11.8H, Red Blood Count 4.12L, Hemoglobin 11.9, Hematocrit 37, Mean Corpuscular Volume 89, Mean Corpuscular Hemoglobin 29, Mean Corpuscular Hemoglobin Concent 32, Red Cell Distribution Width 14.4, Platelet Count 204, Mean Platelet Volume 12.6H, Neutrophils (%) (Auto) 74, Lymphocytes (%) (Auto) 18, Monocytes (%) (Auto) 7, Eosinophils (%) (Auto) 1, Basophils (%) (Auto) 0, Neutrophils # (Auto) 8.7H, Lymphocytes # (Auto) 2.1, Monocytes # (Auto) 0.8, Eosinophils # (Auto) 0.1, Basophils # (Auto) 0.0 Microbiology 11/20/18 Urine Culture - Final, Complete NO GROWTH ELIZABETH GIBBONS DO Nov 22, 2018 10:48
== END 2018-11-22 10:10 | disposition home or self-care (01) | DRG 805 ==
LOC: WSo 15:00 → LDRP 15:01 → WSo 16:19 → LDRP 16:20
PROVIDERS: ADMIT Obstetrics & Gynecology; ATTEND Obstetrics & Gynecology
PROC: 10E0XZZ Delivery of Products of Conception, External Approach (ICD-10-PCS; principal; 2018-11-21)
PROC: 0W8NXZZ Division of Female Perineum, External Approach (ICD-10-PCS; 2018-11-21)
DX: O60.14X0 Preterm labor third trimester with preterm delivery third trimester, not applicable or unspecified (principal); O34.33 Maternal care for cervical incompetence, third trimester; Z37.0 Single live birth; Z3A.36 36 weeks gestation of pregnancy; Z23 Encounter for immunization
CPT/HCPCS: 36415; 81000; 85025; 86850; 86900; 86901; 87088